=== PATIENT | male | born 1955 | race Caucasian/White ===

== ENCOUNTER 2021-08-08 08:19 | Outpatient (CLI) | payer SELFPAY ==
[2021-08-08 09:34] LABS: 25 Hydroxy Vitamin D 15 ng/mL (30-100)
== END 2021-08-08 08:20 | disposition home or self-care (01) ==
LOC: LAB 08:28
PROVIDERS: PCP Nurse Practitioner; Visit Provider Dermatology
DX: Z01.89 Encounter for other specified special examinations (principal)

== ENCOUNTER 2021-11-07 07:53 | Outpatient (CLI) | payer SELFPAY ==
[2021-11-07 09:08] LABS: 25 Hydroxy Vitamin D 37 ng/mL (30-100)
== END 2021-11-07 07:54 | disposition home or self-care (01) ==
LOC: LAB 07:54
PROVIDERS: PCP Nurse Practitioner; Visit Provider Dermatology
DX: Z01.89 Encounter for other specified special examinations (principal)